=== PATIENT | male | born 2000 ===

== ENCOUNTER 2024-06-26 06:59 | Emergency (ER) | payer OTHER ==
[2024-06-26] MEDS ORDERED: ONDANSETRON 4 MG/2 ML VIAL ONE (08:13)
[2024-06-26] MEDS ORDERED: LIDOCAINE VISCOUS 2% 15 ML CUP ONE (08:14)
[2024-06-26] MEDS ORDERED: MAG HYDROX/AL HYDROX/SIMETH 30 ML CUP ONE (08:14)
[2024-06-26] MEDS ORDERED: HYOSCYAMINE ELIXIR 250 MCG/10 ML BTL ONE (08:14)
== END 2024-06-26 11:47 | disposition home or self-care (01) ==
LOC: EC 06:59
DX: R11.2 Nausea with vomiting, unspecified (principal)
CPT/HCPCS: 96374; 99284